=== PATIENT | female | born 1955 | race Caucasian/White ===

== ENCOUNTER 2017-12-18 10:05 | Emergency (ER) | payer OTHER ==
[~2017-12-18] VITALS: Ht 160 cm; Wt 88.9 kg
[2017-12-18] MEDS ORDERED: AZIL1TAB2 PO (10:16)
[2017-12-18] MEDS ORDERED: HYDROCORTISONE CRM TOP (10:21)
[2017-12-18] MEDS ORDERED: JANUMET PO (10:21)
[2017-12-18] MEDS ORDERED: IV NORMAL SALINE 500 ML BAG IV ONE (10:30)
[2017-12-18 10:37] LABS: BASOPHILS % (AUTO) 0.1 % (0.0-2.0); EOSINOPHILS % (AUTO) 0.3 % (0.0-7.0); HEMOGLOBIN 11.6 g/dL (10.9-14.3); LYMPHOCYTES # (AUTO) 1.2 K/uL (20.0-40.0); LYMPHOCYTES % (AUTO) 22.3 % (20.5-51.5); MEAN CORPUSCULAR HEMOGLOBIN 29.7 uug (24.7-32.8); MEAN CORPUSCULAR HGB CONC 34 g/dL (32.3-35.6); MEAN CORPUSCULAR VOLUME 86.8 fL (75.5-95.3); MONOCYTES # (AUTO) 0.7 K/uL (2.0-10.0); MONOCYTES % (AUTO) 13.6 % (0.0-11.0); NEUTROPHILS # (AUTO) 3.3 K/uL (1.8-8.9); NEUTROPHILS % (AUTO) 63.7 % (38.5-71.5); PLATELET COUNT (AUTO) 195 K/uL (179-408); RED BLOOD CELL COUNT(AUTO) 3.92 MIL/uL (3.63-4.92); WHITE BLOOD COUNT (AUTO) 5.2 K/uL (3.8-11.8)
[2017-12-18 10:44] LABS: CREATININE 1.1 mg/dL (0.6-1.3)
--- NOTE | 2017-12-18 10:44 | NUR ---
PT IS IN ROOM #2B. DR DUFF EVALUATED THE PT.
[2017-12-18 10:45] LABS: POTASSIUM 2.8 mmol/L (3.5-5.1)
[2017-12-18] MEDS ORDERED: PANTOPRAZOLE SODIUM 40 MG VIAL IV ONE (10:45)
[2017-12-18] MEDS ORDERED: METOCLOPRAMIDE HCL 10 MG/2 ML VIAL IV ONE (10:45)
[2017-12-18 10:50] LABS: BILIRUBIN,DIRECT 0.2 mg/dL (0.0-0.2); BILIRUBIN,TOTAL 0.6 mg/dL (0.2-1.0); TOTAL PROTEIN, SERUM 7.1 g/dL (6.4-8.2)
[2017-12-18] MEDS ORDERED: METOCLOPRAMIDE HCL 10 MG/2 ML VIAL ONE (10:50)
[2017-12-18] MEDS ORDERED: PANTOPRAZOLE SODIUM 40 MG VIAL ONE (10:51)
[2017-12-18] MEDS: POTASSIUM CHLORIDE 50 ML IV SCH ×2 (10:52→12:25)
[2017-12-18] MEDS ORDERED: POTASSIUM CHLORIDE 50 ML ONE ×2 (11:01→12:02)
[2017-12-18] MEDS ORDERED: ONDANSETRON 4 MG/2 ML VIAL ONE ×2 (11:56→15:08)
[2017-12-18] MEDS ORDERED: POTASSIUM CHLORIDE 20 MEQ TAB.PRT.SR ONE (11:56)
[2017-12-18] MEDS ORDERED: POTASSIUM CHLORIDE 20 MEQ TAB.PRT.SR PO ONE (12:00)
[2017-12-18] MEDS ORDERED: ONDANSETRON 4 MG/2 ML VIAL IV ONE ×2 (12:00→15:15)
[2017-12-18 14:46] LABS: POTASSIUM 3.6 mmol/L (3.5-5.1)
[2017-12-18 15:36] VITALS: BP 112/73
== END 2017-12-18 15:37 | disposition home or self-care (01) ==
LOC: ER 10:05
DX: R10.13 Epigastric pain (principal); R19.7 Diarrhea, unspecified; R11.2 Nausea with vomiting, unspecified; I10 Essential (primary) hypertension; K21.9 Gastro-esophageal reflux disease without esophagitis; E11.9 Type 2 diabetes mellitus without complications; Z88.0 Allergy status to penicillin; Z88.8 Allergy status to other drugs, medicaments and biological substances; Z91.048 Other nonmedicinal substance allergy status
CPT/HCPCS: 36415; 76700; 83690; 85025; A4663; C9113; J2405; J2765; J3480; J7030